=== PATIENT | female | born 1980 | race Caucasian/White ===

== ENCOUNTER 2025-02-07 15:25 | Inpatient (IN) | payer MEDICAID, OTHER ==
[~2025-02-07] VITALS: Ht 165.1 cm; Wt 127.2 kg
[2025-02-07 15:55] LABS: Hematocrit 31.1 % (36.0-46.0); Hemoglobin 10.0 g/dL (12.2-16.2); Mean Corpuscular Hemoglobin 24.3 pg (28.0-32.0); Mean Corpuscular Volume 75.7 fL (80.0-100.0); Nucleated Red Blood Cells % 0.0 %
[2025-02-07 16:06] LABS: Potassium 3.8 mmol/L (3.5-5.1); Sodium 142 mmol/L (136-145)
--- NOTE | 2025-02-07 16:06 | DVH ---
XY CHEST PORTABLE, HISTORY: syncope COMPARISON: None None TECHNICAL DATA: 1 view of the chest was obtained. FINDINGS: Lines and tubes: None Cardiomediastinal silhouette: normal Pulmonary vasculature: normal Lung expansion: normal Lung airspace: normal Lung interstitium: normal Pleura: normal Pneumothorax: no Bones: Unremarkable Other: no IMPRESSION: No acute intrathoracic abnormality.
[2025-02-07 16:07] LABS: Anion Gap 7 (5-15); Calcium 9.3 mg/dL (8.7-10.4); Carbon Dioxide 28 mmol/L (20-31); Chloride 107 mmol/L (98-107)
[2025-02-07 16:12] LABS: BUN/Creatinine Ratio 23.3 (10.0-20.0); Blood Urea Nitrogen 21 mg/dL (9-23); Glucose 89 mg/dL (74-106)
--- NOTE | 2025-02-07 16:12 | DVH ---
Exam: CT HEAD WITHOUT CONTRAST History: syncope Technique: [address] images through the posterior fossa and the supratentorial compart ment were acquired without contrast and imaged using soft tissue and bone algorithms. RADIATION DOSE: DLP 883.27 mGy.cm; CTDI vol 53.67 mGy. Comparison: None Findings: There is no evidence of an intracranial hemorrhage, acute large vessel infarct, mass effect, or midli ne shift. The calvarium, orbits, paranasal sinuses, sella, middle ears, and mastoids are unremarkable. The superficial soft tissues are within normal limits. Impression: 1. No acute intracranial abnormality.
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
[2025-02-07 18:41] LABS: Urine Protein, UAD Negative (Negative)
--- NOTE | 2025-02-07 18:49 | ECG ---
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
[2025-02-07] MEDS: SODIUM CHLORIDE 0.9% 1,000 ML IV ONE (21:27)
[2025-02-07] MEDS ORDERED: ACETAMINOPHEN 325 MG TAB PO PRN (23:15)
[2025-02-07] MEDS ORDERED: DOCUSATE SOD 100 MG CAP PO PRN (23:15)
[2025-02-07] MEDS ORDERED: ONDANSETRON HCL 4 MG/2 ML VIAL IV PRN (23:15)
[2025-02-08] VITALS (9 sets, daily range): BP systolic 100–122; BP diastolic 51–75; PULSE 62–85; RESP 15–18; TEMP 97.7–98.2; O2SAT 96–100
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
[2025-02-08 06:37] LABS: Hemoglobin 9.4 g/dL (12.2-16.2); Nucleated Red Blood Cells % 0.0 %
[2025-02-08 06:41] LABS: Hematocrit 28.6 % (36.0-46.0); Mean Corpuscular Hemoglobin 24.6 pg (28.0-32.0); Mean Corpuscular Volume 74.8 fL (80.0-100.0)
[2025-02-08] MEDS ORDERED: ACETAMINOPHEN 325 MG TAB PO PRN (06:45)
[2025-02-08 07:00] LABS: Alanine Aminotransferase 12 U/L (7-40); Albumin 3.8 g/dL (3.2-4.8); Anion Gap 10 (5-15); BUN/Creatinine Ratio 18.2 (10.0-20.0); Bilirubin, Total 0.5 mg/dL (0.2-1.0); Blood Urea Nitrogen 14 mg/dL (9-23); Carbon Dioxide 22 mmol/L (20-31); Glucose 89 mg/dL (74-106); Potassium 3.9 mmol/L (3.5-5.1); Sodium 142 mmol/L (136-145); Total Protein 6.4 g/dL (5.7-8.2)
[2025-02-08] MEDS: LACTATED RINGER'S 500 ML IV ONE (07:00)
[2025-02-08 07:02] LABS: Alkaline Phosphatase 40 U/L (46-116); Chloride 110 mmol/L (98-107)
[2025-02-08 07:03] LABS: Calcium 8.6 mg/dL (8.7-10.4)
[2025-02-08] MEDS: ATORVASTATIN 20 MG TAB PO ONE (07:06)
[2025-02-08] MEDS: LACTATED RINGER'S 1,000 ML IV SCH (08:00)
--- NOTE | 2025-02-08 08:41 | DVH ---
Bilateral lower extremity venous duplex Clinical History: edema Comparison: None Findings: Duplex Doppler evaluation of the deep venous systems of both lower extremities from the common femora l veins to the popliteal veins including color Doppler and spectral/pulsed waveform analysis was perf ormed. RIGHT SIDE: The common femoral vein demonstrates appropriate compressibility and waveform variability. There is compressibility/patency of the great saphenous vein at the proximal thigh. The femoral vein demonstrates appropriate compressibility and waveform variability. The deep femoral vein demonstrates appropriate compressibility and waveform variability. The popliteal vein demonstrates appropriate compressibility and waveform variability. There is normal compressibility at the tibioperoneal trunk. LEFT SIDE: The common femoral vein demonstrates appropriate compressibility and waveform variability. There is compressibility/patency of the great saphenous vein at the proximal thigh. The femoral vein demonstrates appropriate compressibility and waveform variability. The deep femoral vein demonstrates appropriate compressibility and waveform variability. The popliteal vein demonstrates appropriate compressibility and waveform variability. There is normal compressibility at the tibioperoneal trunk. IMPRESSION: No right or left femoropopliteal venous thrombosis. If clinical concern/symptoms persist or worsen, short-interval follow-up study is suggested. END IMPRESSION:
[2025-02-08 09:42] LABS: Magnesium 1.8 mg/dL (1.6-2.6)
[2025-02-08 09:43] LABS: Creatine Kinase IFCC 104.0 U/L (34-145)
[2025-02-08 09:50] LABS: Beta HCG, Quantitative 0.3 mIU/mL (1.5-4.2)
[2025-02-08] MEDS: NITROGLYCERIN 0.4 MG SL TAB SL ONE (10:00)
[2025-02-08 10:22] LABS: Total Iron Binding Capacity 389.0 ug/dL (250-425)
[2025-02-08 10:23] LABS: Iron 40.0 ug/dL (50-170)
[2025-02-08 10:24] LABS: Hepatitis B Surface Antigen Negative (Negative); Hepatitis C Antibody Negative (Negative)
[2025-02-08 10:28] LABS: Thyroid Stimulating Hormone 3.29 uIU/mL (0.55-4.78)
[2025-02-08 11:27] LABS: Amphetamine Screen, Urine Neg (NEGATIVE); Barbiturate Scree,Urine Neg (NEGATIVE); Benzodiazephine Screen, Urine Neg (NEGATIVE); Cannabinoid Screen, Urine Neg (NEGATIVE); Cocaine Screen, Urine Neg (NEGATIVE); Opiate Scree,Urine Neg (NEGATIVE); Phencyclidine Screen, Urine Neg (NEGATIVE)
--- NOTE | 2025-02-08 11:55 | DVHPN2 ---
Reviewed: Care Plan, H&P, Labs, Medications, Previous Orders, Radiology Changes from previous H/P or p: No Changes Objective Vitals Vital Signs Date Time Temp Pulse Resp B/P (MAP) Pulse Ox O2 Delivery O2 Flow Rate FiO2 02/08/25 09:00 98.0 62 18 122/75 (91) 100 98.0 02/08/25 08:00 Room Air* 0 21 Intake/Output Intake and Output 02/08/25 07:00 Intake Total 600 ml Balance 600 ml Intake Oral 600 ml # Voids 2 Medications Current Medications Medications Dose Ordered Sig/Gary Route Start Time Stop Time Status Last Admin Dose Admin Ondansetron HCl 4 mg Q4HP PRN IV 02/07/25 23:15 Docusate Sodium 100 mg BIDPRN PRN PO 02/07/25 23:15 Atorvastatin Calcium 40 mg HS PO 02/08/25 22:00 Aspirin 81 mg DAILY PO 02/08/25 05:45 02/08/25 07:06 81 MG Acetaminophen 650 mg Q4HP PRN PO 02/08/25 06:45 Lactated Ringer's 1,000 ml @ 75 mls/hr [id number] IV 02/08/25 08:00 Laboratory Results Laboratory Tests 02/08/25 05:55 Chemistry Test 02/07/25 15:39 02/08/25 05:55 02/08/25 08:38 Calcium Level 9.3 mg/dL (8.7-10.4) 8.6 mg/dL (8.7-10.4) L Albumin 3.8 g/dL (3.2-4.8) Total Protein 6.4 g/dL (5.7-8.2) Magnesium Level 1.8 mg/dL (1.6-2.6) Coagulation Test 02/08/25 08:38 D-Dimer, Quantitative 0.80 mg/L FEU (0.0-0.49) H LFT Test 02/08/25 05:55 Alanine Aminotransferase (ALT) 12 U/L (7-40) Alkaline Phosphatase 40 U/L (46-116) L Aspartate Amino Transferase (AST) 14 U/L (13-40) Total Bilirubin 0.5 mg/dL (0.2-1.0) HgA1c, TSH Test 02/08/25 08:38 Thyroid Stimulating Hormone (TSH) 3.29 uIU/mL (0.55-4.78) Urinalysis Test 02/07/25 17:41 Urine Color Light-yellow (Yellow) Urine Clarity Clear (Clear) Urine pH 6.0 (5.0-9.0) Urine Specific [place] 1.020 (1.001-1.035) Urine Protein Negative (Negative) Urine Ketones Negative (Negative) Urine Blood Negative /uL (Negative) Urine Nitrite Negative (Negative) Urine Bilirubin Negative (Negative) Urine Urobilinogen Normal mg/dL (Negative) Urine Leukocyte Esterase Negative /uL (Negative) Urine RBC 4 /hpf (0 - 4) Urine Microscopic WBC 1 /HPF (0-5) Urine Squamous Epithelial Cells Few /hpf (<5) Urine Bacteria Few /hpf (None Seen) H Urine Glucose Normal mg/dL (Normal) Labs and/or images reviewed: Labs reviewed by me, Image(s) reviewed by me Assessment/Plan Assessment/Plan Syncope unknown etiology: Neurology consult cardiology consult Chest pain rule out acute coronary syndrome Ruled out pericarditis: ESR CRP History of transient hemiparesis following mechanical fall ruled out DVT ruled out Elevated D-dimer; CT chest angiogram rule out PE ordered Urine drug screen negative Time Spent 50 minutes Plan discussed with: Patient Date of Service: Feb 08, 2025 Billing Provider: PARIS RASCON MD Common Visit Codes: [id number] INP/OBS CARE(HIGH) PARIS RASCON MD Feb 08, 2025 11:55
[2025-02-08] MEDS: IOHEXOL 350 MG/ML 100ML IJ ONE (12:55)
--- NOTE | 2025-02-08 13:57 | DVH ---
CTA Chest with intravenous contrast INDICATION: Elevated D-dimer rule out PE COMPARISON: None TECHNIQUE: Multidetector spiral CTA of the chest was performed of the chest with intravenous contrast . PULMONARY ANGIOGRAPHY PROTOCOL was utilized using a bolus-tracking technique centered on the main p ulmonary artery. Axial, coronal and sagittal multiplanar and MIP reformats were performed. Radiation Dose : 1. Chest: CTDI volume is 9.41 mGy. Dose-length product is 277.61 mGy*cm The dose indicators for CT are the volume Computed Tomography (CT) Dose Index (CTDIvol) and the Dose Length Product (DLP), and are measured in units of mGy and mGy-cm, respectively. These indicators are not patient dose, but values generated from the CT scanner acquisition factors. The report includes radiation exposure data for exposures received during this examination. Findings: Pulmonary artery: No pulmonary embolism Lower neck: Normal thyroid. Lungs: Dependent subsegmental atelectasis. Heart/Vascular Structures: Normal heart size. No pericardial effusion. Lymph Nodes: No adenopathy Pleura: No pleural effusion or significant pneumothorax. Musculoskeletal: No acute osseous abnormality. Soft tissues: Normal. Upper abdomen: Limited portions of the upper abdomen are unremarkable. IMPRESSION: No pulmonary embolism. Dependent atelectasis.
--- NOTE | 2025-02-08 18:17 | DVHSR ---
APPROVED REPORT EXAM: Two-dimensional and M-mode echocardiogram with Doppler and color Doppler. Blood Pressure: 111/65 mmHg INDICATION r/o Structural heart disease RISK FACTORS Height: 5' 5", Weight: 171 DIMENSIONS LVDd4.7 (3.8-5.7cm)LA (2D)3.9 (1.9-4.0cm)Aortic Root3.1 (2.0-3.7cm) LVDs3.0 (2.5-4.0cm)LA (MM) (1.9-4.0cm)Aortic Cusp Exc1.8 (1.5-2.0cm) EF (%) 67.0 (55-70%)Rt. Atrium4.0 (1.9-4.0cm)Asc. Aorta cm IVSd1.0 (0.7-1.1cm)RV (D) (1.8-2.4cm) PWd0.7 (0.7-1.1cm) Mitral Valve MitralMitral Stenosis E wave1.10m/sMV Mean GR.mmHg A wave0.60m/sMV Peak GR.mmHg E/A ratio1.82D MVAcm2 Aortic Valve Aortic ValveAortic Stenosis V11.00m/Fina Mean GR.3mmHg V21.30m/Fina Peak GR.7mmHg LVOT Diameter2.1 (1.8-2.4cm)Doppler AVA2.66cm2 Pulmonic Valve V20.56m/s Conclusion Left ventricle: Left ventricle is normal-sized with normal systolic function. LVEF was 65-70%. The re was no wall motion abnormality. Left ventricular diastolic function was considered normal. Right ventricle was normal-sized with normal systolic function. Both atria were normal-sized. Aortic valve was trileaflet. There was no aortic insufficiency/stenosis. There was no mitral regurg itation/stenosis. There was trace tricuspid regurgitation. There was trace pulmonary valve insuffic iency. As there was no good tricuspid regurgitation jet, right ventricular systolic pressure could not be es timated. There was no echocardiographic evidence for pulmonary hypertension. There was no pericardial effusion.
--- NOTE | 2025-02-08 20:37 | DVHINCON2 ---
Date of service: Feb 08, [address] Stoddard Reason for Consultation Recurrence of seizure to rule out, history of seizure disorder History of Present Illness Ms. Prasad is a 44 years old right-handed female with a history of depression, seizure disorder, she came to the [facility] on 02/07/2025 with a chief company of syncope. At this time, she is alert and fully oriented, he provided the following history. Her problem started sometimes earlier this year, she developed intermittent palpitation, dizziness/lightheadedness no med if she is resting in bed or standing. Sometime between 09/2024 to 10/2024, when she was writing her friend's car, she developed lightheadedness, and she passed out for about 3 seconds, he was seen in the [facility] ER,, she was said to have "pulmonary spasms", and she is recommended to see a Petrologist Her ductfixing plumber found tachycardia on her, and he was put a new beta damian, according to ER note metoprolol. Coincidentally after this new medication, she has intense fatigue, she still has spells of dizziness/lightheadedness, no matter if he is resting in bed or up standing, and she had three more brief passing out with clear sensorium on waking up On 02/07/2025, when she was driving, he had a feeling of sleepiness, intense fatigue, and she passed out for 3 seconds without any accident, and she was mentally fine on waking up Between the age of [age], she had spells of generalized convulsion when she is sleep or wake, and she remembers all the events. 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 LVEF was 65-70%. There was no wall motion abnormality. Left ventricular diastolic function was considered normal. Right ventricle was normal-sized with normal systolic function. Both atria were normal-sized. Aortic valve was trileaflet. There was no aortic insufficiency/stenosis. There was no mitral regurgitation/stenosis. There was trace tricuspid regurgitation. There was trace pulmonary valve insufficiency. As there was no good tricuspid regurgitation jet, right ventricular systolic pressure could not be estimated. There was no echocardiographic evidence for pulmonary hypertension. There was no pericardial effusion CT head, 02/07/2025: No acute intracranial abnormality CTA chest, 02/08/2025: No pulmonary embolism. Dependent atelectasis. Past Medical History depression, nonepileptic seizure Past Surgical History Shoulder surgery, Family History: Cerebrovascular accident (CVA) uncle uncle FH: heart attack uncle uncle Family History Coronary artery disease, heart attack, stroke, depression, anxiety Social History He has no history of tobacco smoking, drug or alcohol abuse Allergies: Coded Allergies: Codeine (Verified Allergy, Mild, 02/07/25) Current Medications Current Medications Medications (Trade) Dose Ordered Sig/Gary Route PRN Reason Start Time Stop Time Status Last Admin Acetaminophen (Tylenol Tablet) 325 mg Q4HP PRN PO MILD PAIN (1-3 PAIN SCALE) 02/07/25 23:15 02/08/25 06:49 DC Ondansetron HCl (Zofran) 4 mg Q4HP PRN IV NAUSEA / VOMITING 02/07/25 23:15 Docusate Sodium (Colace Capsule) 100 mg BIDPRN PRN PO FOR CONSTIPATION 02/07/25 23:15 Atorvastatin Calcium (Lipitor) 40 mg HS PO 02/08/25 22:00 Aspirin 81 mg DAILY PO 02/08/25 05:45 02/08/25 07:06 Acetaminophen (Tylenol Tablet) 650 mg Q4HP PRN PO MILD PAIN (1-3 PAIN SCALE) 02/08/25 06:45 Lactated Ringer's 1,000 ml @ 75 mls/hr [id number] IV 02/08/25 08:00 02/08/25 08:00 Review of Systems As above, the other systems are negative Vital Signs Vital Signs Date Time Temp Pulse Resp B/P (MAP) Pulse Ox O2 Delivery O2 Flow Rate FiO2 02/08/25 17:00 98.1 68 16 109/68 (82) 98 98.1 02/08/25 08:00 Room Air* 0 21 Physical Exam GENERAL EXAM: General: the patient is well developed and nourished. No acute distress. HEENT: Normocephalic, neck is supple, no carotid bruits. No mass. RESPIRATORY: Normal respiratory effort with symmetrical lung expansion. Lungs clear to auscultation. CARDIOVASCULAR: Regular rate and rhythm with no murmurs. S1, S2. ABDOMEN: Soft, nontender, normal bowel sound NEUROLOGICAL: MENTAL STATUS: Awake and alert. Oriented to person, place, time and general circumstances. Poor historian SPEECH, LANGUAGE, HIGHER CORTICAL FUNCTION: no aphasia or dysathria. CRANIAL NERVES: #2: Intact visual gonzales to confrontation. The optic discs were sharp. #3,4,6: Pupils are equal, round and reactive. EOMs full and conjugate. #5: Facial sensation intact in all three divisions bilaterally. Mandibular strength intact. #7: Facial muscles symmetrical and strength intact. #8: Hearing grossly normal to voice. #9,10: Uvula and soft palate rise in the midline. Swallow and voice are normal. #11: Trapezius and sternomastoid strength intact bilaterally. #12: Tongue midline. No fasciculations or atrophy. SENSATION: Sensation to touch and pinprick is normal. MOTOR: Normal tone in the upper and lower extremity. Normal muscle bulk. No fasciculations. No abnormal movements or posturing. Muscle strength of the major groups in the upper extremities is 5/5. Muscle strength of the major groups in the lower extremities is 5/5. REFLEXES: Deep tendon reflexes normal and symmetrical. No pathological reflexes. CEREBELLAR/COORDINATION: Finger to nose and heel to lee are normal bilaterally. GAIT/STATION: deferred. Labs/Diagnostic Data Labs Test 02/08/25 10:40 02/08/25 08:38 02/08/25 05:55 02/07/25 18:49 Range/Units Lactic Acid Level 0.8 0.4-2.0 mmol/L D-Dimer, Quantitative 0.80 H 0.0-0.49 mg/L FEU Magnesium Level 1.8 1.6-2.6 mg/dL Iron Level 40 L 50-170 ug/dL Total Iron Binding Capacity 389 250-425 ug/dL Percent Iron Saturation 10.3 L 15-50 % Ferritin 4.8 L 10-291 ng/mL Creatine Kinase 104 34-145 U/L Vitamin B12 Level 355 211-911 pg/mL Folic Acid 12.99 >5.38 ng/mL Thyroid Stimulating Hormone (TSH) 3.29 0.55-4.78 uIU/mL Beta HCG, Quantitative 0.3 L 1.5-4.2 mIU/mL Plasma/Serum Blood Alcohol < 3.0 <10 mg/dL White Blood Count 6.9 4.4-10.8 10^3/uL Red Blood Count 3.82 L 4.0-5.20 10^6/uL Hemoglobin 9.4 L 12.2-16.2 g/dL Hematocrit 28.6 L 36.0-46.0 % Mean Corpuscular Volume 74.8 L 80.0-100.0 fL Mean Corpuscular Hemoglobin 24.6 L 28.0-32.0 pg Mean Corpuscular Hemoglobin Concent 32.9 32.0-36.0 g/dL Red Cell Distribution Width 16.9 H 11.8-14.3 % Platelet Count 148 140-450 10^3/uL Mean Platelet Volume 10.2 6.9-10.8 fL Neutrophils (%) (Auto) 60.9 37.0-80.0 % Lymphocytes (%) (Auto) 26.6 10.0-50.0 % Monocytes (%) (Auto) 7.6 0.0-12.0 % Eosinophils (%) (Auto) 4.4 0.0-7.0 % Basophils (%) (Auto) 0.5 0.0-2.0 % Neutrophils # (Auto) 4.2 1.6-8.6 10 ^3/uL Lymphocytes # (Auto) 1.8 0.4-5.4 10 ^3/uL Monocytes # (Auto) 0.5 0-1.3 10 ^3/uL Eosinophils # (Auto) 0.3 0-0.8 10 ^3/uL Basophils # (Auto) 0 0-0.2 10 ^3/uL Nucleated Red Blood Cells 0.0 % Erythrocyte Sedimentation Rate 19 0-20 mm/hr Sodium Level 142 136-145 mmol/L Potassium Level 3.9 3.5-5.1 mmol/L Chloride Level 110 H 98-107 mmol/L Carbon Dioxide Level 22 20-31 mmol/L Anion Gap 10 5-15 Blood Urea Nitrogen 14 9-23 mg/dL Creatinine 0.77 0.550-1.02 mg/dL Glomerular Filtration Rate Calc 99 >90 mL/min BUN/Creatinine Ratio 18.2 10.0-20.0 Serum Glucose 89 74-106 mg/dL Calcium Level 8.6 L 8.7-10.4 mg/dL Total Bilirubin 0.5 0.2-1.0 mg/dL Aspartate Amino Transferase (AST) 14 13-40 U/L Alanine Aminotransferase (ALT) 12 7-40 U/L Alkaline Phosphatase 40 L 46-116 U/L Total Protein 6.4 5.7-8.2 g/dL Albumin 3.8 3.2-4.8 g/dL Hepatitis B Surface Antigen Negative Negative Hepatitis C Antibody Negative Negative Troponin I High Sensitivity < 3 L </=34 ng/L Test 02/07/25 17:41 Range/Units Urine Color Light-yellow Yellow Urine Clarity Clear Clear Urine pH 6.0 5.0-9.0 Urine Specific [place] 1.020 1.001-1.035 Urine Protein Negative Negative Urine Ketones Negative Negative Urine Blood Negative Negative /uL Urine Nitrite Negative Negative Urine Bilirubin Negative Negative Urine Urobilinogen Normal Negative mg/dL Urine Leukocyte Esterase Negative Negative /uL Urine RBC 4 0 - 4 /hpf Urine Microscopic WBC 1 0-5 /HPF Urine Squamous Epithelial Cells Few <5 /hpf Urine Bacteria Few H None Seen /hpf Urine Glucose Normal Normal mg/dL Urine Opiates Screen Neg NEGATIVE Urine Fentanyl Screen Neg NEGATIVE Urine Barbiturates Screen Neg NEGATIVE Urine Phencyclidine Screen Neg NEGATIVE Urine Amphetamines Screen Neg NEGATIVE Urine Benzodiazepines Screen Neg NEGATIVE Urine Cocaine Screen Neg NEGATIVE Urine Cannabinoids Screen Neg NEGATIVE Assessment Recurrent dizziness/lightheadedness Passing out event x5 Syncope Partial complex seizure, less likely TIA, less likely Plan/Recommendation Monitoring Supportive treatment Telemetry EEG MR brain scan Syncopal precautions Cardiology evaluation She has been advised not to drive until she is cleared DMV report in the chart More recommendation per clinical course Long time spent with her This medical document was created using an electronic medical record system with [employer] computerized dictation system. Although this document has been carefully reviewed, there may still be some phonetic and typographical errors. These areas are purely typographical due to imperfections of the software programs, and do not reflect any compromise in the patient's medical care. Plan discussed with: Patient, Other DIANE AGUILAR MD Feb 08, 2025 20:37
[2025-02-08] MEDS: ATORVASTATIN 20 MG TAB PO SCH (21:53)
[2025-02-09 08:00] VITALS: PULSE 64
[2025-02-09 09:00] VITALS: BP_SYST 111; BP_SYST 115; BP_DIAS 60; BP_DIAS 68; BP_DIAS 72; PULSE 60; PULSE 63; PULSE 69; RESP 17; TEMP 97.9; O2SAT 100
--- NOTE | 2025-02-09 09:07 | DVH ---
CLINICAL INDICATION: Passing out COMPARISON: CT HEAD WITHOUT CONTRAST on DOS: 02/07/25 TECHNIQUE: Multisequence multiplanar MRI images of the brain were obtained without contrast. FINDINGS: No acute infarct or hemorrhage. No mass or midline shift. Ventricles and sulci are within normal limits. Basal cisterns are patent. Partially empty sella. Cerebellum, brainstem, and midline s tructures are otherwise within normal limits. Mild mucosal thickening of the paranasal sinuses. Rete ntion cyst versus polyp in the right maxillary sinus. Orbits are grossly unremarkable. IMPRESSION: 1. No evidence of acute intracranial abnormality. 2. Nonacute findings as described above.
--- NOTE | 2025-02-09 09:56 | DVHPN2 ---
Reviewed: Care Plan, H&P, Labs, Medications, Previous Orders, Radiology Changes from previous H/P or p: No Changes Objective Vitals Vital Signs Date Time Temp Pulse Resp B/P (MAP) Pulse Ox O2 Delivery O2 Flow Rate FiO2 02/08/25 21:00 97.7 65 18 112/69 (83) 99 97.7 66 103/74 (84) 78 117/71 (86) 02/08/25 20:00 Room Air* 0 21 Intake/Output Intake and Output 02/09/25 07:00 Intake Total 1400 ml Balance 1400 ml Intake Oral 900 ml IV Total 500 ml # Voids 8 # Bowel Movements 1 Medications Current Medications Medications Dose Ordered Sig/Gary Route Start Time Stop Time Status Last Admin Dose Admin Ondansetron HCl 4 mg Q4HP PRN IV 02/07/25 23:15 Docusate Sodium 100 mg BIDPRN PRN PO 02/07/25 23:15 Atorvastatin Calcium 40 mg HS PO 02/08/25 22:00 02/08/25 21:53 40 MG Aspirin 81 mg DAILY PO 02/08/25 05:45 02/08/25 07:06 81 MG Acetaminophen 650 mg Q4HP PRN PO 02/08/25 06:45 Lactated Ringer's 1,000 ml @ 75 mls/hr [id number] IV 02/08/25 08:00 02/09/25 04:18 75 MLS/HR Laboratory Results Laboratory Tests 02/08/25 05:55 Urinalysis Test 02/07/25 17:41 Urine Color Light-yellow (Yellow) Urine Clarity Clear (Clear) Urine pH 6.0 (5.0-9.0) Urine Specific [place] 1.020 (1.001-1.035) Urine Protein Negative (Negative) Urine Ketones Negative (Negative) Urine Blood Negative /uL (Negative) Urine Nitrite Negative (Negative) Urine Bilirubin Negative (Negative) Urine Urobilinogen Normal mg/dL (Negative) Urine Leukocyte Esterase Negative /uL (Negative) Urine RBC 4 /hpf (0 - 4) Urine Microscopic WBC 1 /HPF (0-5) Urine Squamous Epithelial Cells Few /hpf (<5) Urine Bacteria Few /hpf (None Seen) H Urine Glucose Normal mg/dL (Normal) Labs and/or images reviewed: Labs reviewed by me, Image(s) reviewed by me Assessment/Plan Assessment/Plan Syncope unknown etiology: Neurology consult by Dr. Coleman appreciated, MRI brain neg, cardiology consult for Dr. Baptiste Chest pain rule out acute coronary syndrome Rule out pericarditis: ESR normal Rule out partial complex seizures Rule out TIA History of transient hemiparesis following mechanical fall ruled out DVT ruled out Elevated D-dimer; CT chest angiogram rule out PE ordered Urine drug screen negative Time Spent 50 minutes Plan discussed with: Patient My Orders Orders - PARIS RASCON MD Procedure Category Date Status Time Ct Angio Chest CT 02/08/25 Resulted Contrast 11:54 * Neurology Consult CONS 02/08/25 Transmitted 11:56 Date of Service: Feb 09, 2025 Billing Provider: PARIS RASCON MD Common Visit Codes: [id number] INP/OBS CARE(HIGH) PARIS RASCON MD Feb 09, 2025 09:56
[2025-02-09 13:00] VITALS: BP 112/64; PULSE 63; RESP 17; TEMP 98.1; O2SAT 100
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
[2025-02-09 17:00] VITALS: BP 104/60; PULSE 67; RESP 18; TEMP 98.1; O2SAT 98
[2025-02-09 20:00] VITALS: PULSE 72
[2025-02-09 20:52] VITALS: BP 123/67; PULSE 65; RESP 16; TEMP 98; O2SAT 96
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
[2025-02-10] VITALS (9 sets, daily range): BP systolic 100–124; BP diastolic 51–80; PULSE 65–93; RESP 16–18; TEMP 97.8–98.4; O2SAT 94–100
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
[2025-02-10] MEDS: ATROPINE SULF 1 MG/10ml SYR IV ONE (11:36)
--- NOTE | 2025-02-10 12:16 | DVHPN2 ---
Reviewed: Care Plan, H&P, Labs, Medications, Previous Orders, Radiology Changes from previous H/P or p: No Changes Objective Vitals Vital Signs Date Time Temp Pulse Resp B/P (MAP) Pulse Ox O2 Delivery O2 Flow Rate FiO2 02/10/25 09:00 98.0 71 18 112/51 (71) 100 98.0 02/10/25 08:30 Room Air* 0 21 Intake/Output Intake and Output 02/10/25 07:00 Intake Total 2280 ml Balance 2280 ml Intake Oral 1280 ml IV Total 1000 ml # Voids 9 # Bowel Movements 2 Medications Current Medications Medications Dose Ordered Sig/Gary Route Start Time Stop Time Status Last Admin Dose Admin Ondansetron HCl 4 mg Q4HP PRN IV 02/07/25 23:15 Docusate Sodium 100 mg BIDPRN PRN PO 02/07/25 23:15 Atorvastatin Calcium 40 mg HS PO 02/08/25 22:00 02/09/25 21:15 40 MG Aspirin 81 mg DAILY PO 02/08/25 05:45 02/10/25 09:10 81 MG Acetaminophen 650 mg Q4HP PRN PO 02/08/25 06:45 Lactated Ringer's 1,000 ml @ 75 mls/hr [id number] IV 02/08/25 08:00 02/10/25 11:34 75 MLS/HR Laboratory Results Laboratory Tests 02/08/25 05:55 Urinalysis Test 02/07/25 17:41 Urine Color Light-yellow (Yellow) Urine Clarity Clear (Clear) Urine pH 6.0 (5.0-9.0) Urine Specific [place] 1.020 (1.001-1.035) Urine Protein Negative (Negative) Urine Ketones Negative (Negative) Urine Blood Negative /uL (Negative) Urine Nitrite Negative (Negative) Urine Bilirubin Negative (Negative) Urine Urobilinogen Normal mg/dL (Negative) Urine Leukocyte Esterase Negative /uL (Negative) Urine RBC 4 /hpf (0 - 4) Urine Microscopic WBC 1 /HPF (0-5) Urine Squamous Epithelial Cells Few /hpf (<5) Urine Bacteria Few /hpf (None Seen) H Urine Glucose Normal mg/dL (Normal) Labs and/or images reviewed: Labs reviewed by me, Image(s) reviewed by me Assessment/Plan Assessment/Plan Syncope unknown etiology: Neurology consult by Dr. Coleman appreciated, MRI brain neg, cardiology consult for Dr. Baptiste, cleared for discharge by Cardiology Chest pain rule out acute coronary syndrome Rule out pericarditis: ESR normal Rule out partial complex seizures Rule out TIA History of transient hemiparesis following mechanical fall ruled out DVT ruled out PE ruled out MRI brain negative EEG report pending Urine drug screen negative Time Spent 50 minutes Plan discussed with: Patient Date of Service: Feb 10, 2025 Billing Provider: PARIS RASCON MD Common Visit Codes: [id number] INP/OBS CARE(HIGH) PARIS RASCON MD Feb 10, 2025 12:16
[2025-02-11 01:00] VITALS: BP 98/56; PULSE 72; RESP 18; TEMP 98; O2SAT 98
[2025-02-11 05:00] VITALS: BP 105/56; PULSE 72; RESP 16; TEMP 98.2; O2SAT 97
[2025-02-11 08:00] VITALS: PULSE 69; PULSE 85; RESP 16
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
[2025-02-11 09:00] VITALS: BP 97/56; PULSE 85; RESP 16; TEMP 98.1; O2SAT 97
[2025-02-11] MEDS ORDERED: ATOR-507 PO (11:43)
--- NOTE | 2025-02-11 11:45 | DVHPN2 ---
Reviewed: Care Plan, H&P, Labs, Medications, Previous Orders, Radiology Changes from previous H/P or p: No Changes Objective Vitals Vital Signs Date Time Temp Pulse Resp B/P (MAP) Pulse Ox O2 Delivery O2 Flow Rate FiO2 02/11/25 09:00 98.1 85 16 97/56 (70) 97 98.1 02/11/25 08:00 Room Air* 0 21 Intake/Output Intake and Output 02/11/25 07:00 Intake Total 1940 ml Balance 1940 ml Intake Oral 940 ml IV Total 1000 ml # Voids 11 # Bowel Movements 1 Medications Current Medications Medications Dose Ordered Sig/Gary Route Start Time Stop Time Status Last Admin Dose Admin Ondansetron HCl 4 mg Q4HP PRN IV 02/07/25 23:15 Docusate Sodium 100 mg BIDPRN PRN PO 02/07/25 23:15 Atorvastatin Calcium 40 mg HS PO 02/08/25 22:00 02/10/25 21:38 40 MG Aspirin 81 mg DAILY PO 02/08/25 05:45 02/11/25 09:33 81 MG Acetaminophen 650 mg Q4HP PRN PO 02/08/25 06:45 Lactated Ringer's 1,000 ml @ 75 mls/hr [id number] IV 02/08/25 08:00 02/11/25 02:40 75 MLS/HR Laboratory Results Laboratory Tests 02/08/25 05:55 Urinalysis Test 02/07/25 17:41 Urine Color Light-yellow (Yellow) Urine Clarity Clear (Clear) Urine pH 6.0 (5.0-9.0) Urine Specific [place] 1.020 (1.001-1.035) Urine Protein Negative (Negative) Urine Ketones Negative (Negative) Urine Blood Negative /uL (Negative) Urine Nitrite Negative (Negative) Urine Bilirubin Negative (Negative) Urine Urobilinogen Normal mg/dL (Negative) Urine Leukocyte Esterase Negative /uL (Negative) Urine RBC 4 /hpf (0 - 4) Urine Microscopic WBC 1 /HPF (0-5) Urine Squamous Epithelial Cells Few /hpf (<5) Urine Bacteria Few /hpf (None Seen) H Urine Glucose Normal mg/dL (Normal) Labs and/or images reviewed: Labs reviewed by me, Image(s) reviewed by me Assessment/Plan Assessment/Plan Syncope unknown etiology: Neurology consult by Dr. Coleman appreciated, MRI brain neg, cardiology consult for Dr. Baptiste, cleared for discharge by Cardiology Chest pain rule out acute coronary syndrome Rule out pericarditis: ESR normal Rule out partial complex seizures Rule out TIA History of transient hemiparesis following mechanical fall ruled out DVT ruled out PE ruled out MRI brain negative EEG was done report is pending but the patient wants to go home Urine drug screen negative Time Spent 50 minutes Plan discussed with: Patient Date of Service: Feb 11, 2025 Billing Provider: PARIS RASCON MD Common Visit Codes: [id number] INP/OBS CARE(HIGH) PARIS RASCON MD Feb 11, 2025 11:45
--- NOTE | 2025-02-11 11:49 | DVHDS2 ---
Discharge Summary Date of Admission Feb 07, 2025 at 23:14 Date of Discharge: Feb 11, 2025 Admitting Diagnosis Dizziness and syncope Wounds: None Labs/Diagnostic Data: Laboratory Results Test 02/08/25 10:40 02/08/25 08:38 02/08/25 05:55 02/07/25 18:49 Lactic Acid Level 0.8 mmol/L (0.4-2.0) D-Dimer, Quantitative 0.80 mg/L FEU (0.0-0.49) Magnesium Level 1.8 mg/dL (1.6-2.6) Iron Level 40 ug/dL (50-170) Total Iron Binding Capacity 389 ug/dL (250-425) Percent Iron Saturation 10.3 % (15-50) Ferritin 4.8 ng/mL (10-291) Creatine Kinase 104 U/L (34-145) Vitamin B12 Level 355 pg/mL (211-911) Folic Acid 12.99 ng/mL (>5.38) Thyroid Stimulating Hormone (TSH) 3.29 uIU/mL (0.55-4.78) Beta HCG, Quantitative 0.3 mIU/mL (1.5-4.2) Plasma/Serum Blood Alcohol < 3.0 mg/dL (<10) White Blood Count 6.9 10^3/uL (4.4-10.8) Red Blood Count 3.82 10^6/uL (4.0-5.20) Hemoglobin 9.4 g/dL (12.2-16.2) Hematocrit 28.6 % (36.0-46.0) Mean Corpuscular Volume 74.8 fL (80.0-100.0) Mean Corpuscular Hemoglobin 24.6 pg (28.0-32.0) Mean Corpuscular Hemoglobin Concent 32.9 g/dL (32.0-36.0) Red Cell Distribution Width 16.9 % (11.8-14.3) Platelet Count 148 10^3/uL (140-450) Mean Platelet Volume 10.2 fL (6.9-10.8) Neutrophils (%) (Auto) 60.9 % (37.0-80.0) Lymphocytes (%) (Auto) 26.6 % (10.0-50.0) Monocytes (%) (Auto) 7.6 % (0.0-12.0) Eosinophils (%) (Auto) 4.4 % (0.0-7.0) Basophils (%) (Auto) 0.5 % (0.0-2.0) Neutrophils # (Auto) 4.2 10 ^3/uL (1.6-8.6) Lymphocytes # (Auto) 1.8 10 ^3/uL (0.4-5.4) Monocytes # (Auto) 0.5 10 ^3/uL (0-1.3) Eosinophils # (Auto) 0.3 10 ^3/uL (0-0.8) Basophils # (Auto) 0 10 ^3/uL (0-0.2) Nucleated Red Blood Cells 0.0 % Erythrocyte Sedimentation Rate 19 mm/hr (0-20) Sodium Level 142 mmol/L (136-145) Potassium Level 3.9 mmol/L (3.5-5.1) Chloride Level 110 mmol/L (98-107) Carbon Dioxide Level 22 mmol/L (20-31) Anion Gap 10 (5-15) Blood Urea Nitrogen 14 mg/dL (9-23) Creatinine 0.77 mg/dL (0.550-1.02) Glomerular Filtration Rate Calc 99 mL/min (>90) BUN/Creatinine Ratio 18.2 (10.0-20.0) Serum Glucose 89 mg/dL (74-106) Calcium Level 8.6 mg/dL (8.7-10.4) Total Bilirubin 0.5 mg/dL (0.2-1.0) Aspartate Amino Transferase (AST) 14 U/L (13-40) Alanine Aminotransferase (ALT) 12 U/L (7-40) Alkaline Phosphatase 40 U/L (46-116) Total Protein 6.4 g/dL (5.7-8.2) Albumin 3.8 g/dL (3.2-4.8) Hepatitis B Surface Antigen Negative (Negative) Hepatitis C Antibody Negative (Negative) Troponin I High Sensitivity < 3 ng/L (</=34) Test 02/07/25 17:41 Urine Color Light-yellow (Yellow) Urine Clarity Clear (Clear) Urine pH 6.0 (5.0-9.0) Urine Specific [place] 1.020 (1.001-1.035) Urine Protein Negative (Negative) Urine Ketones Negative (Negative) Urine Blood Negative /uL (Negative) Urine Nitrite Negative (Negative) Urine Bilirubin Negative (Negative) Urine Urobilinogen Normal mg/dL (Negative) Urine Leukocyte Esterase Negative /uL (Negative) Urine RBC 4 /hpf (0 - 4) Urine Microscopic WBC 1 /HPF (0-5) Urine Squamous Epithelial Cells Few /hpf (<5) Urine Bacteria Few /hpf (None Seen) Urine Glucose Normal mg/dL (Normal) Urine Opiates Screen Neg (NEGATIVE) Urine Fentanyl Screen Neg (NEGATIVE) Urine Barbiturates Screen Neg (NEGATIVE) Urine Phencyclidine Screen Neg (NEGATIVE) Urine Amphetamines Screen Neg (NEGATIVE) Urine Benzodiazepines Screen Neg (NEGATIVE) Urine Cocaine Screen Neg (NEGATIVE) Urine Cannabinoids Screen Neg (NEGATIVE) Other Laboratory Tests 02/08/25 05:55 Brief Hx & Hospital Course: 44-year-old female with a history of transient hemiparesis following mechanical fall came in for syncope and chest pain. Troponin was negative coronary artery disease ruled out seen by Cardiology Dr. Dale. CT head negative MRI brain negative seen by neurology Dr. Coleman. EEG was done report pending DVT ruled out PE ruled out ruled out urine drug screen is negative pericarditis ruled out. Patient was cleared for discharge by Cardiology. Patient does not want to wait for the EEG report and wants to go home. Discharged home prescription for Lipitor transmitted to the pharmacy. She will follow up with Neurology for EEG report Consults/Reason for consult Cardiology Dr. Dale Neurology Dr. Coleman Operations or Procedures CT head MRI brain Echocardiogram EEG Condition at Discharge: Fair Final Diagnosis/Problems List Syncope unknown etiology: Neurology consult by Dr. Coleman appreciated, MRI brain neg, cardiology consult for Dr. Baptiste, cleared for discharge by Cardiology Chest pain rule out acute coronary syndrome Rule out pericarditis: ESR normal Rule out partial complex seizures Rule out TIA History of transient hemiparesis following mechanical fall ruled out DVT ruled out PE ruled out MRI brain negative EEG was done report is pending but the patient wants to go home Urine drug screen negative Discharge Disposition: Home Discharge Instruct/Medications Diet: Cardiac 2g Na,low cholest Activity: Light activity Follow Up/Referral: Follow up with the full stack software developer Dr. Dale in two weeks Follow up with the Neurology Dr. Coleman in 1 week Medications: Lipitor Transmitted to [facility] pharmacy Scheduled Atorvastatin Calcium (Lipitor), 1 TAB PO QPM 39 (Time taken for discharge summary 39 minutes) Discharge Statement: "Patient was advised to return to the ER or call 911 if any headaches, dizziness, shortness of breath, chest pain, abdominal pain, bleeding, fevers, or worsening of medical condition. Patient was counseled about treatment plan, medications, possible side effects, patientverbalized understanding. All questions were answered to the best of my ability. This discharge took greater then 30 minutes in planning, reviewing documentation, counseling the patient, and discussing with other team members." ASSESSMENT ASSESSMENT Hospital Course Uneventful Assessment Syncope unknown etiology: Neurology consult by Dr. Jared rivero, MRI brain neg, cardiology consult for Dr. Baptiste, cleared for discharge by Cardiology Chest pain rule out acute coronary syndrome Rule out pericarditis: ESR normal Rule out partial complex seizures Rule out TIA History of transient hemiparesis following mechanical fall ruled out DVT ruled out PE ruled out MRI brain negative EEG was done report is pending but the patient wants to go home Urine drug screen negative Date of Service: Feb 11, 2025 Billing Provider: PARIS RASCON MD Common Visit Codes: [id number] DISCH DAY >30min PARIS RASCON MD Feb 11, 2025 11:49
[2025-02-11 12:32] VITALS: BP 115/66; PULSE 73; RESP 18; TEMP 36.7; O2SAT 100
[2025-02-11 13:00] VITALS: BP 115/66; PULSE 73; RESP 18; TEMP 98; O2SAT 100
--- NOTE | 2025-02-12 00:08 | DVHEEG2 ---
Neurology EEG Procedural Note Procedural Note EXAM DATE: 02/09/2025 REFERRING DOCTOR: Dr. Aguilar TECHNIQUE: Eighteen channels of EEG, 2 channels of EOG, and 1 channel of EKG were recorded using the [employer] 10/20 system. CLINICAL DATA: The patient was referred for an EEG evaluation for the evidence of seizure disorder. MEDICATIONS: See the chart BACKGROUND ACTIVITY: There was significant amount of electrode artifacts. While the patient was awake, the background activity appeared to be 10-11 Hz rhythmic waveforms, symmetrically distributed over both posterior quadrants and was reactive to eye opening. ACTIVATION: Hyperventilation: Not done Photic Stimulation: Not done Sleep: Not seen IMPRESSION: This is a normal EEG. No focal, lateralized, or epileptiform features are noted. If clinically indicated to rule out a seizure disorder, recommend repeat EEG with sleep deprivation. The EKG channel showed a regular heart rate of 70/min[place] [address] DIANE AGUILAR MD Feb 12, 2025 00:08
== END 2025-02-11 14:46 | disposition home or self-care (01) | DRG 47 ==
LOC: EDBD 15:25 → ER 15:25 → OVERFLOW 23:14 → TELE-EAST 23:53
PROVIDERS: ADMIT Family Medicine; ATTEND Family Medicine
DX: G45.9 Transient cerebral ischemic attack, unspecified (principal); G40.209 Localization-related (focal) (partial) symptomatic epilepsy and epileptic syndromes with complex partial seizures, not intractable, without status epilepticus; I24.9 Acute ischemic heart disease, unspecified; G91.9 Hydrocephalus, unspecified; I10 Essential (primary) hypertension; D64.9 Anemia, unspecified; F53.0 Postpartum depression; Z82.49 Family history of ischemic heart disease and other diseases of the circulatory system; Z82.3 Family history of stroke; Z88.5 Allergy status to narcotic agent; Z81.8 Family history of other mental and behavioral disorders; Z87.891 Personal history of nicotine dependence; Z91.81 History of falling
CPT/HCPCS: 36415; 70450; 70551; 71045; 71275; 80048; 80053; 80307; 80320; 81001; 82550; 82607; 82728; 82746; 83540; 83550; 83605; 83735; 84443; 84484; 84702; 85025; 85379; 85652; 86803; 87340; 93005; 93306; 93970; 95819; 96360; 97110; 97116; 97163; 97530; 99291; G0378